=== PATIENT | male | born 1980 | race Caucasian/White ===

== ENCOUNTER 2018-01-14 20:45 | Inpatient (IN) | payer MEDICAID ==
[~2018-01-14] VITALS: Ht 165.1 cm; Wt 75.3 kg
[2018-01-14] MEDS ORDERED: KETOROLAC 30MG/ML VIAL IV STA (21:59)
[2018-01-14] MEDS ORDERED: FAMOTIDINE 20MG/2ML VIAL IV STA (21:59)
[2018-01-14] MEDS ORDERED: SODIUM CHLORIDE 0.9% 1,000 ML IV ONE (21:59)
[2018-01-14 22:53] LABS: CLARITY URINE CLOUDY (CLEAR); COLOR URINE ORANGE (YELLOW); KETONES URINE NEGATIVE (NEGATIVE); LEUKOCYTE ESTERASE URINE 1+ (NEGATIVE); NITRITE URINE POSITIVE (NEGATIVE); OCCULT BLOOD URINE NEGATIVE (NEGATIVE); PH URINE 5.5 (4.5-8.0); PROTEIN URINE 2+ (NEGATIVE); SPECIFIC GRAVITY URINE 1.036 (1.005-1.030); UROBILINOGEN URINE 0.2 E.U./dL (0.2-1.0)
[2018-01-14 23:06] LABS: *AMPHETAMINES SCREEN URINE NEGATIVE (NEGATIVE); *BARBITURATES SCREEN URINE NEGATIVE (NEGATIVE); *BENZODIAZEPINES SCREEN URINE NEGATIVE (NEGATIVE); *COCAINE SCREEN URINE NEGATIVE (NEGATIVE); CANNABINOID URINE SCREEN PRESUMTIVE POSITIVE (NEGATIVE); METHADONE URINE SCREEN NEGATIVE (NEGATIVE); OPIATES URINE SCREEN NEGATIVE (NEGATIVE); PHENCYCLIDINE URINE SCREEN NEGATIVE (NEGATIVE)
[2018-01-14 23:38] LABS: HEMATOCRIT. 45.1 % (42.0-52.0); MEAN CORPUSCULAR VOLUME 96.3 fL (80.0-94.0); MEAN PLATELET VOLUME 9.9 fl (7.4-10.4); PLATELET 89 x1000/uL (130-400); RED BLOOD CELL COUNT 4.68 mill/uL (4.7-6.1)
[2018-01-15 00:06] LABS: HEMOGLOBIN. 14.7 g/dL (14.0-18.0); MEAN CORPUSCULAR HEMOGLOBIN 31.4 pg (28.0-32.0)
[2018-01-15 00:29] LABS: ETHANOL BLOOD < 10 mg/dL
[2018-01-15 00:30] LABS: PLATELET ESTIMATE SLIGHTLY DECREASED
[2018-01-15 00:37] LABS: CHLORIDE 96 mEq/L (98-107)
[2018-01-15] MEDS ORDERED: SODIUM CHLORIDE 0.9% 1000ML BAG (SEPSIS BOLUS) IV ONE (01:00)
[2018-01-15 04:00] VITALS: BP 129/95
[2018-01-15 08:00] VITALS: BP 122/82
[2018-01-15] MEDS ORDERED: ONDANSETRON HCL 4MG/2ML INJ IV PRN (08:45)
[2018-01-15] MEDS ORDERED: IPRATROPIUM/ALBUTEROL 0.5-3(2.5)MG/3ML NEB INH PRN (09:00)
[2018-01-15] MEDS ORDERED: DOCUSATE SODIUM 100MG CAPSULE PO PRN (09:00)
[2018-01-15] MEDS: FAMOTIDINE 20MG/2ML VIAL IV SCH ×2 (09:24→21:52)
[2018-01-15 09:40] LABS: HEMOGLOBIN. 14.7 g/dL (14.0-18.0); MEAN CORPUSCULAR HEMOGLOBIN 34.4 pg (28.0-32.0); MEAN CORPUSCULAR VOLUME 96.3 fL (80.0-94.0); MEAN PLATELET VOLUME 10.1 fl (7.4-10.4); PLATELET 80 x1000/uL (130-400); RED BLOOD CELL COUNT 4.26 mill/uL (4.7-6.1)
[2018-01-15] MEDS ORDERED: MVI, ADULT NO.1 10 ML, FOLIC ACID 1 MG, THIAMINE HCL 100 MG in SODIUM CHLORIDE 0.9% 1,0... IV SCH ×4 (10:00)
[2018-01-15 10:17] LABS: AMYLASE 164 IU/L (25-115); CHLORIDE 103 mEq/L (98-107)
[2018-01-15] MEDS: SODIUM CHLORIDE 0.9% 1,000 ML IV SCH (10:27)
[2018-01-15] MEDS ORDERED: MORPHINE SULFATE 4 MG/ML CPJ (NOT FOR IM USE) IV PRN (11:15)
[2018-01-15 11:57] LABS: HEPATITIS B SURFACE ANTIGEN NEGATIVE
[2018-01-15 12:00] VITALS: BP 125/82
[2018-01-15 12:27] LABS: HEPATITIS A AB IGM NEGATIVE (NEGATIVE)
[2018-01-15 14:13] LABS: PLATELET ESTIMATE DECREASED
[2018-01-15 16:00] VITALS: BP 133/93
[2018-01-15] MEDS: CEFTRIAXONE 1 G PREMIX 50 ML IV SCH (16:05)
[2018-01-15 19:30] VITALS: BP 130/89
[2018-01-15 20:00] VITALS: BP 130/95
[2018-01-16] VITALS: BP 144/95
[2018-01-16] MEDS: ACETAMINOPHEN 325MG TABLET PO PRN ×3 (00:44→21:14)
[2018-01-16] MEDS: SODIUM CHLORIDE 0.9% 1,000 ML IV SCH ×2 (00:46→15:35)
[2018-01-16 05:07] VITALS: BP 131/87
[2018-01-16 06:44] LABS: BASOPHILS % 0.9 % (0.0-2.0); EOSINOPHILS % 2.5 % (0.0-5.0); HEMATOCRIT. 37.1 % (42.0-52.0); HEMOGLOBIN. 12.3 g/dL (14.0-18.0); LYMPHOCYTES % 27.8 % (20.0-50.0); MEAN CORPUSCULAR HEMOGLOBIN 31.7 pg (28.0-32.0); MEAN CORPUSCULAR VOLUME 95.4 fL (80.0-94.0); MONOCYTES % 5.2 % (2.0-8.0); NEUTROPHILS % 63.6 % (40.0-76.0); PLATELET 98 x1000/uL (130-400); RED BLOOD CELL COUNT 3.89 mill/uL (4.7-6.1)
[2018-01-16 06:57] LABS: AMYLASE 77 IU/L (25-115); CHLORIDE 100 mEq/L (98-107)
[2018-01-16 07:05] LABS: HDL CHOLESTEROL 19 mg/dL (40-59); LDL CHOLESTEROL 127 mg/dL (5-100)
[2018-01-16 08:00] VITALS: BP 158/91
[2018-01-16] MEDS: FAMOTIDINE 20MG/2ML VIAL IV SCH ×2 (09:30→21:13)
[2018-01-16] MEDS: LORAZEPAM 2MG/ML CPJ IV PRN (11:00)
[2018-01-16 12:00] VITALS: BP 130/86
[2018-01-16] MEDS: CEFTRIAXONE 1 G PREMIX 50 ML IV SCH (15:35)
[2018-01-16] MEDS: GEMFIBROZIL 600MG TABLET PO SCH (18:20)
[2018-01-16 20:00] VITALS: BP 139/98
[2018-01-17] VITALS: BP 134/91
[2018-01-17 04:00] VITALS: BP 121/80
[2018-01-17] MEDS: SODIUM CHLORIDE 0.9% 1,000 ML IV SCH ×2 (06:15→14:55)
[2018-01-17 07:33] LABS: HEMATOCRIT. 36.5 % (42.0-52.0); MEAN CORPUSCULAR HEMOGLOBIN 31.2 pg (28.0-32.0); MEAN CORPUSCULAR VOLUME 94.6 fL (80.0-94.0); MEAN PLATELET VOLUME 8.9 fl (7.4-10.4); PLATELET 189 x1000/uL (130-400); RED BLOOD CELL COUNT 3.86 mill/uL (4.7-6.1); RED CELL DISTRIBUTION WIDTH 14.2 % (11.6-14.6)
[2018-01-17 07:40] LABS: INR 1.1; PARTIAL THROMBOPLASTIN TIME 27.3 sec (23.4-31.0); PROTHROMBIN TIME 11.2 sec (9.4-11.6)
[2018-01-17 08:00] VITALS: BP 140/95
[2018-01-17 08:20] LABS: CHLORIDE 99 mEq/L (98-107)
[2018-01-17] MEDS: GEMFIBROZIL 600MG TABLET PO SCH ×2 (08:21→17:50)
[2018-01-17] MEDS: FAMOTIDINE 20MG/2ML VIAL IV SCH ×2 (09:45→20:48)
[2018-01-17 11:12] LABS: PLATELET ESTIMATE NORMAL
[2018-01-17 12:00] VITALS: BP 136/102
[2018-01-17 16:00] VITALS: BP 144/105
[2018-01-17] MEDS: LORAZEPAM 2MG/ML CPJ IV PRN (18:29)
[2018-01-17] MEDS ORDERED: SODIUM CHLORIDE 0.9% 500 ML IV NR (18:44)
[2018-01-17] MEDS ORDERED: POTASSIUM CHLORIDE 20MEQ TABLET SR PO NR (18:45)
[2018-01-17 20:00] VITALS: BP 118/64
[2018-01-18] VITALS: BP 115/77
[2018-01-18 04:00] VITALS: BP 104/69
[2018-01-18] MEDS: SODIUM CHLORIDE 0.9% 1,000 ML IV SCH ×2 (05:58→17:24)
[2018-01-18 07:36] LABS: HEMATOCRIT. 33.6 % (42.0-52.0); HEMOGLOBIN. 11.4 g/dL (14.0-18.0); MEAN CORPUSCULAR VOLUME 94.2 fL (80.0-94.0); MEAN PLATELET VOLUME 8.3 fl (7.4-10.4); PLATELET 223 x1000/uL (130-400); RED BLOOD CELL COUNT 3.57 mill/uL (4.7-6.1); RED CELL DISTRIBUTION WIDTH 14.4 % (11.6-14.6)
[2018-01-18 07:46] LABS: CHLORIDE 101 mEq/L (98-107)
[2018-01-18 07:55] LABS: T4 FREE 0.92 ng/dL (0.76-1.46)
[2018-01-18 08:00] VITALS: BP 142/94
[2018-01-18] MEDS: GEMFIBROZIL 600MG TABLET PO SCH ×2 (08:15→17:24)
[2018-01-18] MEDS: FAMOTIDINE 20MG/2ML VIAL IV SCH (11:40)
[2018-01-18 14:10] LABS: PLATELET ESTIMATE NORMAL
[2018-01-18 16:00] VITALS: BP 130/90
[2018-01-18 18:31] VITALS: BP 130/90
== END 2018-01-18 20:10 | disposition home or self-care (01) | DRG 720 ==
LOC: ER 22:26 → 6EST 01-15 01:51 → ENRESERV 01-15 02:37 → 5WST 01-15 20:54
PROVIDERS: ADMIT Internal Medicine; ATTEND Internal Medicine
DX: A41.9 Sepsis, unspecified organism (principal); E46 Unspecified protein-calorie malnutrition; K83.1 Obstruction of bile duct; K85.90 Acute pancreatitis without necrosis or infection, unspecified; K76.0 Fatty (change of) liver, not elsewhere classified; F17.200 Nicotine dependence, unspecified, uncomplicated; F10.239 Alcohol dependence with withdrawal, unspecified; E78.1 Pure hyperglyceridemia; E78.5 Hyperlipidemia, unspecified; F41.9 Anxiety disorder, unspecified; N39.0 Urinary tract infection, site not specified; Z68.27 Body mass index [BMI] 27.0-27.9, adult
CPT/HCPCS: 36415; 71045; 74176; 74181; 76705; 80048; 80061; 80076; 80305; 82140; 82150; 82248; 83605; 84439; 84443; 84478; 84480; 86705; 86709; 86803; 87340; 93005; 93970; 96365; 96375; 99285; G0482; J0696; J1885; J2060; J3411; J3490; J7030

== ENCOUNTER 2022-03-10 00:24 | Emergency (ER) | payer MEDICAID, OTHER ==
[~2022-03-10] VITALS: Ht 165.1 cm; Wt 65.3 kg
[2022-03-10] MEDS ORDERED: KETOROLAC 30MG/ML VIAL IV STA (00:58)
[2022-03-10] MEDS ORDERED: MAGNESIUM/ALUMINUM HYDROXIDE/SIMETHICONE 30ML UDC PO STA (00:58)
[2022-03-10] MEDS ORDERED: VISCOUS LIDOCAINE 2% 15 ML UDC PO STA (00:58)
[2022-03-10 01:34] LABS: CLARITY URINE CLEAR (CLEAR); COLOR URINE DARK YELLOW (YELLOW); KETONES URINE TRACE (NEGATIVE); LEUKOCYTE ESTERASE URINE NEGATIVE (NEGATIVE); NITRITE URINE NEGATIVE (NEGATIVE); OCCULT BLOOD URINE NEGATIVE (NEGATIVE); PH URINE 6.5 (4.5-8.0); PROTEIN URINE TRACE (NEGATIVE); SPECIFIC GRAVITY URINE 1.023 (1.005-1.030)
[2022-03-10 01:41] LABS: CHLORIDE 98 mEq/L (98-107)
[2022-03-10 01:44] LABS: CANNABINOID URINE SCREEN PRESUMTIVE POSITIVE (NEGATIVE); PHENCYCLIDINE URINE SCREEN NEGATIVE (NEGATIVE)
[2022-03-10 01:45] LABS: *BARBITURATES SCREEN URINE NEGATIVE (NEGATIVE); *BENZODIAZEPINES SCREEN URINE NEGATIVE (NEGATIVE); *COCAINE SCREEN URINE NEGATIVE (NEGATIVE); METHADONE URINE SCREEN NEGATIVE (NEGATIVE); OPIATES URINE SCREEN NEGATIVE (NEGATIVE)
[2022-03-10 01:46] LABS: *AMPHETAMINES SCREEN URINE NEGATIVE (NEGATIVE)
[2022-03-10 02:32] LABS: ETHANOL BLOOD 339 mg/dL
[2022-03-10 02:42] LABS: HEMATOCRIT. 42.8 % (42.0-52.0); HEMOGLOBIN. 15.3 g/dL (14.0-18.0); MEAN CORPUSCULAR HEMOGLOBIN 34.2 pg (28.0-32.0); MEAN CORPUSCULAR VOLUME 95.5 fL (80.0-94.0); PLATELET 168 x1000/uL (130-400); RED BLOOD CELL COUNT 4.49 mill/uL (4.7-6.1); RED CELL DISTRIBUTION WIDTH 13.7 % (11.6-14.6)
[2022-03-10 04:29] LABS: ATYPICAL LYMPHOCYTES 4; PLATELET ESTIMATE NORMAL
[2022-03-10 05:30] VITALS: BP 124/88
== END 2022-03-10 07:11 | disposition home or self-care (01) ==
LOC: ER 00:24
DX: K29.20 Alcoholic gastritis without bleeding (principal); F10.10 Alcohol abuse, uncomplicated; F12.90 Cannabis use, unspecified, uncomplicated; Y90.8 Blood alcohol level of 240 mg/100 ml or more
CPT/HCPCS: 36415; 80053; 80305; 80320; 81003; 83690; 85025; 93005; 96374; 99284; J1885; G0480